=== PATIENT | female | born 2000 | race Hispanic/Latino ===

== ENCOUNTER 2020-04-20 16:45 | Outpatient (CLI) | payer MEDICAID, OTHER ==
[2020-04-20 18:39] LABS: Bacteria,Urine 1+ /HPF (Negative); Bilirubin,Urine NEG (Negative); Blood,Urine NEG (Negative); Color,Urine Straw (Yellow); Mucus,Urine FEW /HPF; Protein,Urine <15 mg/dL mg/dL (Negative); Urobilinogen,Urine < 2.0 mg/dL (<2.0)
[2020-04-20] MEDS ORDERED: LACTATED RINGERS 500 ML IV ONE (19:00)
[2020-04-20 20:22] VITALS: BP 120/87
== END 2020-04-20 20:39 | disposition home or self-care (01) ==
LOC: TRG 16:45 → APU 16:47 → TRG 20:39
PROVIDERS: ATTEND Obstetrics & Gynecology
DX: O47.03 False labor before 37 completed weeks of gestation, third trimester (principal); Z3A.35 35 weeks gestation of pregnancy
CPT/HCPCS: 59025; 81001

== ENCOUNTER 2020-05-10 15:14 | Outpatient (CLI) | payer OTHER, MEDICAID ==
[2020-05-10 15:57] VITALS: BP 125/83
== END 2020-05-10 17:39 | disposition home or self-care (01) ==
LOC: TRG 15:14 → APU 15:15 → TRG 17:39
PROVIDERS: ATTEND Obstetrics & Gynecology
DX: O47.1 False labor at or after 37 completed weeks of gestation (principal); Z3A.38 38 weeks gestation of pregnancy
CPT/HCPCS: 59025

== ENCOUNTER 2020-05-14 22:43 | Outpatient (CLI) | payer MEDICAID ==
[2020-05-14 23:04] VITALS: BP 123/84
== END 2020-05-15 00:15 | disposition home or self-care (01) ==
LOC: TRG 22:43 → APU 22:45 → TRG 05-15 00:15
PROVIDERS: ATTEND Obstetrics & Gynecology
DX: O26.893 Other specified pregnancy related conditions, third trimester (principal); R10.9 Unspecified abdominal pain; Z3A.39 39 weeks gestation of pregnancy
CPT/HCPCS: 59025

== ENCOUNTER 2020-05-21 16:21 | Outpatient (CLI) | payer MEDICAID ==
[2020-05-21 17:06] VITALS: BP 125/84
[2020-05-21] MEDS ORDERED: ONDANSETRON 4 MG/2 ML INJ IM ONE (17:50)
--- NOTE | 2020-05-21 19:49 | Ultrasound Report ---
ULTRASOUND BIOPHYSICAL PROFILE INDICATION / CLINICAL INFORMATION: well-being. COMPARISON: None available. FINDINGS: BREATHING MOVEMENT = 2 GROSS BODY MOVEMENT = 2 TONE = 2 QUALITATIVE AMNIOTIC FLUID VOLUME = 2 TOTAL BIOPHYSICAL SCORE = 04/18 AMNIOTIC FLUID INDEX (cm) = 10.2 PRESENTATION: Cephalic. HEART RATE (beats per minute): 118 IMPRESSION: 1. biophysical profile = 04/18 Signer Name: Norbert Abad MD Signed: 05/21/2020 7:45 PM Workstation Name: [id number]
== END 2020-05-21 20:00 | disposition home or self-care (01) ==
LOC: APU 16:21 → TRG 16:21
PROVIDERS: ATTEND Obstetrics & Gynecology
DX: O36.8130 Decreased fetal movements, third trimester, not applicable or unspecified (principal); O99.343 Other mental disorders complicating pregnancy, third trimester; F41.9 Anxiety disorder, unspecified; F32.9 Major depressive disorder, single episode, unspecified; O47.1 False labor at or after 37 completed weeks of gestation; Z3A.40 40 weeks gestation of pregnancy; Z90.49 Acquired absence of other specified parts of digestive tract
CPT/HCPCS: 59025; 76815; 76819; 96372; J2405